=== PATIENT | male | born 1980 | race Caucasian/White ===

== ENCOUNTER → 2025-05-03 | Day surgery (SDC) | payer BC ==
[~2025-05-03] MED LIST: BUSPIRONE HCL5 MG PO; FENTANYL CITRATE/PF 100MCG/2 ML INJ ONE; MIDAZOLAM HCL 2 MG/2 ML VIAL ONE; PROPOFOL IV EMULSION 10 MG/ML 20 ML VIAL ONE
[2025-05-03] MEDS: LACTATED RINGER'S 1,000 ML ONE (08:25)
[2025-05-03 09:45] VITALS: BP 119/93; PULSE 78; RESP 16; TEMP 97.5; O2SAT 97
== END | disposition home or self-care (01) ==
LOC: OR 07:01
PROVIDERS: ATTEND Internal Medicine Gastroenterology
DX: Z12.11 Encounter for screening for malignant neoplasm of colon (principal); D12.5 Benign neoplasm of sigmoid colon; K63.5 Polyp of colon; A63.0 Anogenital (venereal) warts; Z01.810 Encounter for preprocedural cardiovascular examination; F41.9 Anxiety disorder, unspecified; Z71.3 Dietary counseling and surveillance; Z68.32 Body mass index [BMI] 32.0-32.9, adult; G47.33 Obstructive sleep apnea (adult) (pediatric); Z79.899 Other long term (current) drug therapy
CPT/HCPCS: 45380; 45385; 93005; J2250